=== PATIENT | male | born 1970 | race Caucasian/White ===

== ENCOUNTER → 2018-04-06 10:18 | Outpatient (CLI) | payer OTHER, SELFPAY ==
[2018-04-06 13:03] LABS: Free T3 3.3 pg/mL (2.18-3.98); Thyroid Stim Hormone (TSH) 3.18 uIU/mL (0.358-3.74)
== END ==
LOC: MFPLAB 10:19
PROVIDERS: Family Provider Family Medicine; PCP Family Medicine; Visit Provider Family Medicine
DX: E03.9 Hypothyroidism, unspecified (principal)
CPT/HCPCS: 36415; 84436; 84443; 84481

== ENCOUNTER 2021-11-25 08:00 | Outpatient (CLI) | payer OTHER, SELFPAY ==
--- NOTE | 2021-11-25 11:19 | NEURO ---
NCS and/or EMG Patient Report Ordering Doctor: Zhou Tran DATE OF SERVICE: 11/25/21 Mario Alberto presents for electrodiagnostic testing of the left upper limb. He reports numbness and tingling in the left hand. He also reports neck pain with radiation to the elbow. Electrodiagnostic findings: Left median motor nerve demonstrates mildly prolonged distal latency with normal amplitude and reduced conduction velocity. Normal left ulnar motor response, including conduction across the elbow when measured at the abductor digit he minimi. Left median sensory latency is prolonged. Prolonged left palmar response. On needle EMG, 1+ fibrillations noted in the right triceps, right pronator teres and right mid cervical paraspinals. Motor unit action potentials are of normal amplitude and duration Electrodiagnostic impression: This is an abnormal study in the right upper limb. 1. Electrodiagnostic findings demonstrate acute right-sided C7 radiculopathy. Consider correlation with cervical spine MRI to evaluate for possible disc herniation or stenosis 2. Electrodiagnostic evidence suggestive of a left-sided median mononeuropathy, mild in nature. However, the patient does not have clinical signs for carpal tunnel syndrome.
== END 2021-11-25 23:59 | disposition home or self-care (01) ==
PROVIDERS: PCP Family Medicine; Referring Provider Student in an Organized Health Care Education/Training Program; Visit Provider Student in an Organized Health Care Education/Training Program
DX: G56.22 Lesion of ulnar nerve, left upper limb (principal); R20.2 Paresthesia of skin
CPT/HCPCS: 95886; 95910

== ENCOUNTER → 2022-03-29 | Outpatient (CLI) | payer OTHER, SELFPAY ==
[2022-03-29 15:23] LABS: Absolute Lymphocyte Count 2.48 X10^3/uL (0.83-4.51); Basophil# 0.05 X10^3/uL; Basophil% 0.5 % (0-1); Eosinophil# 0.22 X10^3/uL; Eosinophils% 2.4 % (0-5); Hematocrit 44.6 % (40-54); Hemoglobin 14.6 g/dL (13.0-16.5); Lymphocyte # 2.48 X10^3/ul (0.83-4.51); Lymphocyte % 26.9 % (19-41); Mean Corp Hgb Conc 32.7 g/dL (32-36); Mean Corpuscular Hgb 29.2 pg (27.0-32.0); Mean Corpuscular Volume 89.2 fL (80-94); Mean Platelet Vol. 11.2 fl (6.2-12.0); Monocyte# 0.44 X10^3/uL; Monocyte% 4.8 % (0-10); NRBC Flagged by Analyzer 0 % (0-5); Neutrophil # 6.02 X10^3/uL (2.7-7.7); Neutrophil % 65.2 % (47-70); Platelet Count 290 K/mm3 (150-450); RBC Distribution Width CV 13.7 % (11.6-14.6); RBC Distribution Width SD 45.1 fl (35.1-43.9); White Blood Count 9.2 K/mm3 (4.4-11.0)
[2022-03-29 15:36] LABS: Anion Gap 6 (5-15); BUN 13 mg/dL (7-18); Calcium,Total 9.3 mg/dL (8.5-10.1); Chloride 105 mmol/L (98-107); Cholesterol 211 mg/dL (200); Creatinine, Serum 0.93 mg/dL (0.70-1.30); EST Glomerular Filtration Rate 91 mL/min (>60); Est Glom Filt Rate - Afr Amer 111 mL/min (>60); Glucose 69 mg/dL (74-106); High Density Lipoprotein 33 mg/dL; Potassium 3.4 mmol/L (3.5-5.1); Sodium Level 140 mmol/L (136-145); Triglycerides 227 mg/dL; Very Low Density Lipoprotein 45 mg/dL (5-40)
== END | disposition home or self-care (01) ==
LOC: MFPLAB 11:17
PROVIDERS: PCP Family Medicine; Visit Provider Family Medicine
DX: Z00.00 Encounter for general adult medical examination without abnormal findings (principal); M54.2 Cervicalgia
CPT/HCPCS: 36415; 80048; 80061; 85025